=== PATIENT | male | born 1970 | race African-American/Black ===

== ENCOUNTER 2018-08-08 22:54 | Emergency (ER) | payer MEDICAID, OTHER ==
[~2018-08-08] VITALS: Ht 172.7 cm; Wt 68.0 kg
--- NOTE | 2018-08-08 23:00 | NUR ---
BIB RA TO BED 12 COMPLAINING OF CHEST PAIN X 2 WEEKS, NON RADIATING, DULL PAIN, 8/10 PAIN. AA/OX4. NO S/S OF SOB. SPEAKING FULL SENTENCES. SKIN PINK, WARM, DRY. NO N/V. AMBULATED TO BATHROOM WITH STABLE GAIT. NAD. VSS. STABLE CONDITION. WILL CONTINUE TO MONITOR.
[2018-08-08] MEDS ORDERED: ONDANSETRON HCL/PF 4 MG/2 ML VIAL ONE (23:16)
[2018-08-08] MEDS ORDERED: NITROGLYCERIN PACKET 1 GM PACKET ONE (23:17)
[2018-08-08] MEDS ORDERED: ASPIRIN EC 81 MG TABLET.DR PO ONE (23:17)
[2018-08-08] MEDS ORDERED: HYDROCODONE/APAP 5/325MG 1 EACH TABLET ONE (23:17)
[2018-08-08] MEDS: ONDANSETRON HCL/PF 4 MG/2 ML VIAL IVP ONE (23:23)
[2018-08-08] MEDS: HYDROCODONE/APAP 5/325MG 1 EACH TABLET PO ONE (23:24)
[2018-08-08] MEDS: ASPIRIN 81 MG TAB.CHEW PO ONE (23:24)
[2018-08-08] MEDS: NITROGLYCERIN PACKET 1 GM PACKET TD ONE (23:25)
[2018-08-08 23:40] LABS: CALCIUM, SERUM 8.6 mg/dL (8.5-10.1); CARBON DIOXIDE 28 mmol/L (21-32); CHLORIDE 105 mmol/L (98-107); CREATININE 0.9 mg/dL (0.6-1.3); GLUCOSE 93 mg/dL (74-106); POTASSIUM 4.1 mmol/L (3.5-5.1); SODIUM SERUM 139 mmol/L (136-145); UREA NITROGEN, BLOOD 14 mg/dL (7-18)
[2018-08-08 23:46] LABS: HEMATOCRIT 46 % (39-51); HEMOGLOBIN 15.4 g/dL (13.5-17.5); MEAN CORPUSCULAR HEMOGLOBIN 32 PG (26.0-33.0); MEAN CORPUSCULAR HGB CONC 34 g/dl (31.0-36.0); MEAN CORPUSCULAR VOLUME 94 fL (80-96); RDW COEFFICIENT OF VARIATION 13.1 (11.5-15.0); RED BLOOD CELL COUNT(AUTO) 4.85 MIL/uL (4.5-6.0); TROPONIN I < 0.017 ng/mL (0.00-0.056); WHITE BLOOD COUNT (AUTO) 5.3 K/uL (4.3-11.0)
[2018-08-08 23:47] LABS: BASOPHILS % (AUTO) 0.6 % (0.0-2.0); EOSINOPHILS % (AUTO) 1.1 % (0.0-6.0); LYMPHOCYTES % (AUTO) 40.8 % (20.0-44.0); MONOCYTES % (AUTO) 13.5 % (2.0-12.0); NEUTROPHILS % (AUTO) 43.7 % (43.0-81.0); PLATELET COUNT (AUTO) 181 /CMM (150-450)
[2018-08-08 23:52] LABS: ALANINE AMINOTRANSFERASE 55 U/L (12-78); ALBUMIN 3.3 g/dL (3.4-5.0); ALKALINE PHOSPHATASE 43 U/L (46-116); ASPARTATE AMINOTRANSFERASE 33 U/L (15-37); B-TYPE NATRIURETIC PEPTIDE 542 PG/ML (0-125); BILIRUBIN,DIRECT 0.1 mg/dL (0.0-0.2); BILIRUBIN,TOTAL 0.2 mg/dL (0.2-1.0)
[2018-08-09] MEDS ORDERED: LEVOFLOXACIN 750 MG /D5W 150ML 150 ML IV ONE (00:27)
[2018-08-09] MEDS: LEVOFLOXACIN 750 MG /D5W 150ML 150 ML IV ONE (00:30)
--- NOTE | 2018-08-09 01:49 | NUR ---
AMBULATED TO BATHROOM WITH STEADY GAIT. NAD.VSS. WILL CONTINUE TO MONITOR.
--- NOTE | 2018-08-09 03:27 | NUR ---
PT SITTING UP EATING FOOD STABLE CONDITION. NAD. VSS.
[2018-08-09 04:30] VITALS: BP 127/82
== END 2018-08-09 04:31 | disposition home or self-care (01) ==
LOC: ER 22:56
DX: R07.89 Other chest pain (principal); R05 Cough; F31.9 Bipolar disorder, unspecified; F43.10 Post-traumatic stress disorder, unspecified; R94.31 Abnormal electrocardiogram [ECG] [EKG]; Z72.0 Tobacco use; Z88.8 Allergy status to other drugs, medicaments and biological substances; Z71.6 Tobacco abuse counseling; Z86.59 Personal history of other mental and behavioral disorders
CPT/HCPCS: 36415; 71045-TC; 80048-TC; 80076-TC; 83880; 84484-TC; 85025-TC; A4606; J1956; J2405; Z7610

== ENCOUNTER 2021-11-17 00:09 | Emergency (ER) | payer OTHER ==
[~2021-11-17] VITALS: Ht 172.7 cm; Wt 83.9 kg
--- NOTE | 2021-11-17 04:20 | NUR ---
PRESENTED TO THE ER FOR C/O SI. REPORTED RECENT LOOS OF HIS DAD. PT IS REQUESTING VOLUNTARY PSYCH ADMISSION. AMBULATORY TO THE BATHROOM. URINE SAMPLE OBTAINED. WAS PLACED IN BED 12, ON SI PRECAUTION. WITH SITTER OBSERVATION. VSS. WILL CONT TO MONITOR ,
[2021-11-17 05:14] LABS: BASOPHILS % (AUTO) 0.6 % (0.0-2.0); HEMATOCRIT 36 % (39-51); LYMPHOCYTES # (AUTO) 2.6 K/uL (0.8-4.8); LYMPHOCYTES % (AUTO) 41.5 % (20.0-44.0); MEAN CORPUSCULAR HGB CONC 34 g/dl (31.0-36.0); MEAN CORPUSCULAR VOLUME 94 fL (80-96); MONOCYTES # (AUTO) 0.7 K/uL (0.1-1.30); MONOCYTES % (AUTO) 11.2 % (2.0-12.0); NEUTROPHILS # (AUTO) 2.8 K/uL (1.8-8.9); NEUTROPHILS % (AUTO) 44.7 % (43.0-81.0); PLATELET COUNT (AUTO) 195 K/uL (150-450); WHITE BLOOD COUNT (AUTO) 6.2 K/uL (4.3-11.0)
[2021-11-17 05:26] LABS: BILIRUBIN,URINE NEGATIVE (NEGATIVE); COLOR,URINE YELLOW (YELLOW); LEUKOCYTE ESTERASE ,URINE NEGATIVE (NEGATIVE); NITRITE, URINE NEGATIVE (NEGATIVE); PROTEIN,URINE NEGATIVE (NEGATIVE); UGLUCOSE NEGATIVE (NEGATIVE); UROBILINOGEN,URINE 0.2 EU/dL (0.2)
[2021-11-17 05:26] LABS: CALCIUM, SERUM 7.9 mg/dL (8.5-10.1); CARBON DIOXIDE 28 mmol/L (21-32); CHLORIDE 105 mmol/L (98-107); CREATININE 1.1 mg/dL (0.6-1.3); GLUCOSE 126 mg/dL (74-106); POTASSIUM 3.9 mmol/L (3.5-5.1); SODIUM SERUM 140 mmol/L (136-145); UREA NITROGEN, BLOOD 15 mg/dL (7-18)
[2021-11-17 05:33] LABS: ACETAMINOPHEN 0 ug/ml (10-30); ALANINE AMINOTRANSFERASE 53 U/L (12-78); ALBUMIN 3.1 g/dL (3.4-5.0); ALCOHOL, BLOOD < 3 mg/dL (0-0); ALKALINE PHOSPHATASE 48 U/L (46-116); ASPARTATE AMINOTRANSFERASE 30 U/L (15-37); BILIRUBIN,DIRECT 0.1 mg/dL (0.0-0.2); BILIRUBIN,TOTAL 0.2 mg/dL (0.2-1.0); TOTAL PROTEIN, SERUM 6.9 g/dL (6.4-8.2)
--- NOTE | 2021-11-17 06:30 | NUR ---
CLINICALS AND FACE SHEET FAXED TO [facility]
--- NOTE | 2021-11-17 08:06 | NUR ---
PT ACCEPTED TO [facility] UNIT 2 UNDER [facility] BED AVAILABLE AFTER 6415
--- NOTE | 2021-11-17 08:12 | NUR ---
[facility] CALLED FOR TRANSPORT ASKED FOR ETA OF 1230 SPOKE WITH GLORIA.
--- NOTE | 2021-11-17 09:32 | NUR ---
REPORT GIVEN TO NURSE KATHARINE FROM [facility]
[2021-11-17 10:20] VITALS: BP 132/75
--- NOTE | 2021-11-17 12:42 | NUR ---
Patient discharged to [facility] in stable condition. Written and verbal after care instructions given. The patient verbalizes understanding of instruction.
== END 2021-11-17 12:44 ==
LOC: ER 00:11
DX: R45.851 Suicidal ideations (principal); F31.9 Bipolar disorder, unspecified; F41.9 Anxiety disorder, unspecified; Z20.822 Contact with and (suspected) exposure to COVID-19; F43.10 Post-traumatic stress disorder, unspecified; Z59.01 Sheltered homelessness; F17.200 Nicotine dependence, unspecified, uncomplicated; Z88.8 Allergy status to other drugs, medicaments and biological substances
CPT/HCPCS: 36415; 80048; 80076; 80143; 80307; 80320; 81003; 85025; 87426; 99285; C9803; G0480

== ENCOUNTER 2021-11-22 01:25 | Emergency (ER) | payer OTHER ==
[~2021-11-22] VITALS: Ht 172.7 cm; Wt 83.9 kg
[2021-11-22 04:30] VITALS: BP 147/89
[2021-11-22] MEDS ORDERED: IBUPROFEN 400 MG TABLET ONE (04:57)
[2021-11-22] MEDS ORDERED: IBUP-1957 PO (04:58)
[2021-11-22] MEDS ORDERED: IBUPROFEN 400 MG TABLET PO ONE (05:00)
== END 2021-11-22 05:21 | disposition home or self-care (01) ==
LOC: ER 01:25
DX: M21.611 Bunion of right foot (principal); F41.9 Anxiety disorder, unspecified; F32.9 Major depressive disorder, single episode, unspecified; Z88.8 Allergy status to other drugs, medicaments and biological substances; F17.200 Nicotine dependence, unspecified, uncomplicated; Z60.2 Problems related to living alone

== ENCOUNTER 2021-11-23 02:02 | Emergency (ER) | payer OTHER ==
[~2021-11-23] VITALS: Ht 172.7 cm; Wt 83.9 kg
[~2021-11-23 02:02] MED LIST: IBUP-1957 PO
[2021-11-23 02:48] VITALS: BP 124/78
--- NOTE | 2021-11-23 02:53 | NUR ---
BIBS. AAOX4. NOT IN RESP DISTRESS. AMBULATORY. CAME IN FOR SUICIDAL DEATION NO SPECIFIC PLAN. PT STATES THAT HE IS FEELING DEPRESSED BECAUSE HIS FATHER RECENTLY. PT DENIES HI. NO HALLUCINATIONS. MD WAS AT THE BEDSIDE FOR EVAL. ORDERS RECEIVED, NOTED AND CARRIED OUT. BLOOD DRAWN. STILL AWAITING FOR URINE SPECIMEN.
[2021-11-23 03:07] LABS: BASOPHILS % (AUTO) 0.4 % (0.0-2.0); EOSINOPHILS % (AUTO) 1.9 % (0.0-6.0); HEMATOCRIT 38 % (39-51); HEMOGLOBIN 12.9 g/dL (13.5-17.5); LYMPHOCYTES # (AUTO) 2.5 K/uL (0.8-4.8); LYMPHOCYTES % (AUTO) 40.4 % (20.0-44.0); MEAN CORPUSCULAR HGB CONC 34 g/dl (31.0-36.0); MEAN CORPUSCULAR VOLUME 94 fL (80-96); MONOCYTES # (AUTO) 0.8 K/uL (0.1-1.30); NEUTROPHILS # (AUTO) 2.8 K/uL (1.8-8.9); NEUTROPHILS % (AUTO) 44.3 % (43.0-81.0); PLATELET COUNT (AUTO) 206 K/uL (150-450); RED BLOOD CELL COUNT(AUTO) 4.08 MIL/uL (4.5-6.0); WHITE BLOOD COUNT (AUTO) 6.3 K/uL (4.3-11.0)
[2021-11-23 03:20] LABS: CALCIUM, SERUM 8.7 mg/dL (8.5-10.1); CARBON DIOXIDE 33 mmol/L (21-32); CHLORIDE 98 mmol/L (98-107); CREATININE 1.3 mg/dL (0.6-1.3); GLUCOSE 91 mg/dL (74-106); POTASSIUM 4.1 mmol/L (3.5-5.1); SODIUM SERUM 136 mmol/L (136-145); UREA NITROGEN, BLOOD 19 mg/dL (7-18)
[2021-11-23 03:38] LABS: ALANINE AMINOTRANSFERASE 66 U/L (12-78); ALBUMIN 3.9 g/dL (3.4-5.0); ALKALINE PHOSPHATASE 54 U/L (46-116); ASPARTATE AMINOTRANSFERASE 36 U/L (15-37); BILIRUBIN,DIRECT 0.1 mg/dL (0.0-0.2); BILIRUBIN,TOTAL 0.3 mg/dL (0.2-1.0); TOTAL PROTEIN, SERUM 8.6 g/dL (6.4-8.2)
[2021-11-23 03:39] LABS: ACETAMINOPHEN 0 ug/ml (10-30); ALCOHOL, BLOOD < 3 mg/dL (0-0)
--- NOTE | 2021-11-23 06:10 | NUR ---
URINE SAMPLE COLLECTED AND SENT TO LAB
[2021-11-23 07:30] LABS: BILIRUBIN,URINE NEGATIVE (NEGATIVE); COLOR,URINE YELLOW (YELLOW); LEUKOCYTE ESTERASE ,URINE NEGATIVE (NEGATIVE); NITRITE, URINE NEGATIVE (NEGATIVE); PROTEIN,URINE NEGATIVE (NEGATIVE); UGLUCOSE NEGATIVE (NEGATIVE)
[2021-11-23 09:05] LABS: BACTERIA,URINE None seen /HPF (None Seen); CALCIUM OXALATE CRYSTALS,UR Few /HPF (None Seen); SQUAMOUS EPITHELIAL CELL,UR Rare /HPF (None Seen); WBC,URINE 0-2 /HPF (0-3)
--- NOTE | 2021-11-23 09:35 | NUR ---
PT IS NOT IN HIS HOLDING ROOM. CORBY.
--- NOTE | 2021-11-24 13:30 | NUR ---
PATIENT MD CORBY AWARE
[2021-11-26] MEDS ORDERED: ACETAMINOPHEN 325 MG TABLET ONE (03:38)
== END 2021-11-24 17:00 | disposition left against medical advice (07) ==
LOC: ER 02:05
DX: R45.851 Suicidal ideations (principal); F31.9 Bipolar disorder, unspecified; Z59.02 Unsheltered homelessness; F17.210 Nicotine dependence, cigarettes, uncomplicated; Z20.822 Contact with and (suspected) exposure to COVID-19; Z53.29 Procedure and treatment not carried out because of patient's decision for other reasons
CPT/HCPCS: 36415; 80048; 80076; 80143; 80307; 80320; 81001; 85025; 87426; 99285; 99406; C9803; G0480

== ENCOUNTER 2021-11-25 21:25 | Emergency (ER) | payer OTHER ==
[~2021-11-25] VITALS: Ht 175.3 cm; Wt 81.6 kg
[2021-11-26 02:55] VITALS: BP 149/89
[2021-11-26 03:54] LABS: BASOPHILS % (AUTO) 0.7 % (0.0-2.0); EOSINOPHILS % (AUTO) 2.3 % (0.0-6.0); HEMATOCRIT 38 % (39-51); HEMOGLOBIN 12.7 g/dL (13.5-17.5); LYMPHOCYTES # (AUTO) 2.7 K/uL (0.8-4.8); LYMPHOCYTES % (AUTO) 43.9 % (20.0-44.0); MEAN CORPUSCULAR HGB CONC 33 g/dl (31.0-36.0); MEAN CORPUSCULAR VOLUME 93 fL (80-96); MONOCYTES # (AUTO) 0.8 K/uL (0.1-1.30); MONOCYTES % (AUTO) 13.2 % (2.0-12.0); NEUTROPHILS # (AUTO) 2.4 K/uL (1.8-8.9); NEUTROPHILS % (AUTO) 39.9 % (43.0-81.0); PLATELET COUNT (AUTO) 226 K/uL (150-450); RED BLOOD CELL COUNT(AUTO) 4.08 MIL/uL (4.5-6.0); WHITE BLOOD COUNT (AUTO) 6.1 K/uL (4.3-11.0)
[2021-11-26] MEDS ORDERED: ACETAMINOPHEN 325 MG TABLET PO ONE (04:00)
[2021-11-26 04:08] LABS: CALCIUM, SERUM 8.3 mg/dL (8.5-10.1)
[2021-11-26 04:18] LABS: ALBUMIN 3.4 g/dL (3.4-5.0); BILIRUBIN,DIRECT 0.1 mg/dL (0.0-0.2); BILIRUBIN,TOTAL 0.2 mg/dL (0.2-1.0); TOTAL PROTEIN, SERUM 7.7 g/dL (6.4-8.2)
[2021-11-26] MEDS ORDERED: POLY17PO4 PO (04:34)
[2021-11-26] MEDS ORDERED: DICY10CA37 PO (04:34)
--- NOTE | 2021-11-26 04:50 | NUR ---
Patient discharged to home in stable condition. Written and verbal after care instructions given. Patient verbalizes understanding of instruction.
== END 2021-11-26 05:26 | disposition home or self-care (01) ==
LOC: ER 21:56
DX: K59.00 Constipation, unspecified (principal); F17.210 Nicotine dependence, cigarettes, uncomplicated; Z59.00 Homelessness unspecified; Z79.2 Long term (current) use of antibiotics; Z79.1 Long term (current) use of non-steroidal anti-inflammatories (NSAID); Z79.899 Other long term (current) drug therapy; Z88.8 Allergy status to other drugs, medicaments and biological substances
CPT/HCPCS: 36415; 80048-TC; 80076-TC; 83690-TC; 85025-TC

== ENCOUNTER 2022-02-03 01:27 | Emergency (ER) | payer OTHER ==
[~2022-02-03] VITALS: Ht 162.6 cm; Wt 68.0 kg
[~2022-02-03 01:27] MED LIST changes: +DICY10CA37 PO; +POLY17PO4 PO
--- NOTE | 2022-02-03 03:00 | NUR ---
PT BIBSELF FOR C/O + SI REQUESTING VOL PSYCH ADMISSION AT [facility]. PT IS A/O, RR EVEN AND UNLABORED, NO SOB NOTED. VSS. PATIENT BELONGINGS PUT IN PT LOCKER. PT TAKEN TO ER BED 18. PATIENT NOTED WITH STEADY GAIT. WILL CONTINUE TO MONITOR.
[2022-02-03 03:20] LABS: BASOPHILS % (AUTO) 0.3 % (0.0-2.0); EOSINOPHILS % (AUTO) 2.4 % (0.0-6.0); HEMATOCRIT 37 % (39-51); HEMOGLOBIN 12.2 g/dL (13.5-17.5); LYMPHOCYTES # (AUTO) 2.3 K/uL (0.8-4.8); LYMPHOCYTES % (AUTO) 32.5 % (20.0-44.0); MEAN CORPUSCULAR HGB CONC 33 g/dl (31.0-36.0); MEAN CORPUSCULAR VOLUME 93 fL (80-96); MONOCYTES # (AUTO) 0.9 K/uL (0.1-1.30); MONOCYTES % (AUTO) 12.4 % (2.0-12.0); NEUTROPHILS # (AUTO) 3.7 K/uL (1.8-8.9); NEUTROPHILS % (AUTO) 52.4 % (43.0-81.0); PLATELET COUNT (AUTO) 235 K/uL (150-450); RED BLOOD CELL COUNT(AUTO) 3.91 MIL/uL (4.5-6.0); WHITE BLOOD COUNT (AUTO) 7.1 K/uL (4.3-11.0)
[2022-02-03 03:20] LABS: BILIRUBIN,URINE NEGATIVE (NEGATIVE); COLOR,URINE YELLOW (YELLOW); LEUKOCYTE ESTERASE ,URINE NEGATIVE (NEGATIVE); NITRITE, URINE NEGATIVE (NEGATIVE); PROTEIN,URINE NEGATIVE (NEGATIVE); UGLUCOSE NEGATIVE (NEGATIVE)
[2022-02-03 03:31] LABS: CALCIUM, SERUM 8.6 mg/dL (8.5-10.1); CARBON DIOXIDE 32 mmol/L (21-32); CHLORIDE 104 mmol/L (98-107); CREATININE 1.3 mg/dL (0.6-1.3); GLUCOSE 92 mg/dL (74-106); POTASSIUM 4.3 mmol/L (3.5-5.1); SODIUM SERUM 140 mmol/L (136-145); UREA NITROGEN, BLOOD 15 mg/dL (7-18)
[2022-02-03 03:37] LABS: ALANINE AMINOTRANSFERASE 105 U/L (12-78); ALBUMIN 3.6 g/dL (3.4-5.0); ALCOHOL, BLOOD < 3 mg/dL (0-0); ALKALINE PHOSPHATASE 46 U/L (46-116); ASPARTATE AMINOTRANSFERASE 46 U/L (15-37); BILIRUBIN,DIRECT 0.2 mg/dL (0.0-0.2); BILIRUBIN,TOTAL 0.4 mg/dL (0.2-1.0); TOTAL PROTEIN, SERUM 8.5 g/dL (6.4-8.2)
[2022-02-03 03:38] LABS: ACETAMINOPHEN 0 ug/ml (10-30)
--- NOTE | 2022-02-03 05:31 | NUR ---
FACESHEET AND CLINICALS FAXED TO [facility].
--- NOTE | 2022-02-03 10:38 | NUR ---
ACCEPTED TO [facility] UNDER [address] [facility] AFTER 1300 CALL [phone] FOR REPORT.
--- NOTE | 2022-02-03 10:41 | NUR ---
[facility] CALLED FOR TRANSPORT ASKED FOR ETA 1330.
[2022-02-03 11:00] VITALS: BP 125/74
--- NOTE | 2022-02-03 13:18 | NUR ---
THE PATIENT IS DISCHARGED TO [facility] IN STABLE CONDITION VIA ARRANGED TRANSPO.
== END 2022-02-03 13:19 ==
LOC: ER 01:28
DX: R45.851 Suicidal ideations (principal); F31.9 Bipolar disorder, unspecified; Z59.00 Homelessness unspecified; F17.200 Nicotine dependence, unspecified, uncomplicated
CPT/HCPCS: 36415; 80048; 80076; 80143; 80307; 80320; 81003; 85025; 87426; 99285; C9803; G0480

== ENCOUNTER 2022-02-28 17:56 | Emergency (ER) | payer OTHER ==
[~2022-02-28] VITALS: Ht 172.7 cm; Wt 79.8 kg
[2022-02-28 18:22] VITALS: BP 124/83
--- NOTE | 2022-02-28 18:47 | NUR ---
PATIENT NOT ABLE TO PROVIDE URINE SAMPLE
--- NOTE | 2022-02-28 18:48 | NUR ---
PATIENT ASKED TO BE PLACED IN A GOWN AND SURRENDER HIS BELONGINGS. PATIENT DENIED TO COMPLY AND DECIDED TO JUST GO.
--- NOTE | 2022-02-28 18:48 | NUR ---
PT DID NOT VERBALIZED ANY SUICIDAL IDAETION PT VERBALIZED THAT HEIS HERE FOR MED CLEARANCE
== END 2022-02-28 19:00 | disposition left against medical advice (07) ==
LOC: ER 18:03
DX: Z53.21 Procedure and treatment not carried out due to patient leaving prior to being seen by health care provider (principal)

== ENCOUNTER 2023-05-23 21:33 | Emergency (ER) | payer OTHER ==
[~2023-05-23] VITALS: Ht 172.7 cm; Wt 81.6 kg
[2023-05-24 00:37] VITALS: BP 134/87; TEMP 98.1
--- NOTE | 2023-05-24 00:40 | NUR ---
BRODEI FROM STREET C/O DEPRESSION & HI. VOLUNTARY PSYCH ADMIT. PT A/OX4. TOLERATING R/A WELL WITH NO RESP DISTRESS. AMB WITH STEADY GAIT. PT CHANGED IN GOWN. BELONGINGS COLLECTED. WANDED BY SECURITY. SAFETY MEASURES IN PLACE.
--- NOTE | 2023-05-24 00:41 | NUR ---
URINE CUP PROVIDED; AWAITING URINE SAMPLE.
--- NOTE | 2023-05-24 00:41 | NUR ---
COVID ANTIGEN SWAB COLLECTED AND SENT TO LAB
--- NOTE | 2023-05-24 01:01 | NUR ---
URINE COLLECTED AND SENT TO LAB
[2023-05-24 01:32] LABS: BILIRUBIN,URINE 2+ (NEGATIVE); COLOR,URINE DARK YELLOW (YELLOW); LEUKOCYTE ESTERASE ,URINE NEGATIVE (NEGATIVE); NITRITE, URINE NEGATIVE (NEGATIVE); PH,URINE 5.5 (5.0-8.0); PROTEIN,URINE 1+ mg/dl (NEGATIVE); UGLUCOSE NEGATIVE (NEGATIVE)
[2023-05-24 01:51] LABS: BASOPHILS % (AUTO) 0.5 % (0.0-2.0); EOSINOPHILS % (AUTO) 1.2 % (0.0-6.0); HEMATOCRIT 40 % (39-51); HEMOGLOBIN 13.2 g/dL (13.5-17.5); LYMPHOCYTES # (AUTO) 2.5 K/uL (0.8-4.8); LYMPHOCYTES % (AUTO) 41.5 % (20.0-44.0); MEAN CORPUSCULAR HGB CONC 33 g/dl (31.0-36.0); MEAN CORPUSCULAR VOLUME 94 fL (80-96); MONOCYTES # (AUTO) 0.7 K/uL (0.1-1.30); MONOCYTES % (AUTO) 11.9 % (2.0-12.0); NEUTROPHILS # (AUTO) 2.7 K/uL (1.8-8.9); NEUTROPHILS % (AUTO) 44.9 % (43.0-81.0); PLATELET COUNT (AUTO) 275 K/uL (150-450); RED BLOOD CELL COUNT(AUTO) 4.29 MIL/uL (4.5-6.0); WHITE BLOOD COUNT (AUTO) 6.1 K/uL (4.3-11.0)
[2023-05-24 02:01] LABS: CALCIUM, SERUM 9.3 mg/dL (8.5-10.1); CARBON DIOXIDE 30 mmol/L (21-32); CHLORIDE 102 mmol/L (98-107); CREATININE 1.1 mg/dL (0.6-1.3); GLUCOSE 68 mg/dL (74-106); POTASSIUM 3.3 mmol/L (3.5-5.1); SODIUM SERUM 139 mmol/L (136-145); UREA NITROGEN, BLOOD 13 mg/dL (7-18)
[2023-05-24 02:08] LABS: ALANINE AMINOTRANSFERASE 50 U/L (12-78); ALBUMIN 3.9 g/dL (3.4-5.0); ALCOHOL, BLOOD < 3 mg/dL (0-10); ALKALINE PHOSPHATASE 53 U/L (46-116); ASPARTATE AMINOTRANSFERASE 42 U/L (15-37); BILIRUBIN,DIRECT 0.2 mg/dL (0.0-0.2); BILIRUBIN,TOTAL 0.6 mg/dL (0.2-1.0); TOTAL PROTEIN, SERUM 8.7 g/dL (6.4-8.2)
[2023-05-24 02:48] LABS: BACTERIA,URINE Rare /HPF (None Seen); RBC,URINE 0-2 /HPF (0-2); SQUAMOUS EPITHELIAL CELL,UR Few /HPF (None Seen); WBC,URINE 0-2 /HPF (0-3)
[2023-05-24 02:49] LABS: CALCIUM OXALATE CRYSTALS,UR Many /HPF (None Seen); MUCUS,URINE Moderate /LPF (None Seen)
--- NOTE | 2023-05-24 04:30 | NUR ---
FACESHEET AND CLINICALS FAXED TO [facility].
--- NOTE | 2023-05-24 06:08 | NUR ---
PT ACCEPTED TO [facility] ROOM 107A PER [facility]EV[facility]. ETA FOR TRANSPORT 8:30AM
--- NOTE | 2023-05-24 06:22 | NUR ---
[facility] CALLED ETA 30-45 MINUTES
--- NOTE | 2023-05-24 07:10 | NUR ---
PT TRANSFERRING [place] [facility] [facility]. VSS. ALL BELONGINGS WITH PT. REPORT GIVEN TO [facility] EMT
== END 2023-05-24 07:22 ==
LOC: ER 21:38
DX: F32.A Depression, unspecified (principal); R45.4 Irritability and anger; F41.9 Anxiety disorder, unspecified; F17.200 Nicotine dependence, unspecified, uncomplicated; Z20.822 Contact with and (suspected) exposure to COVID-19; Z79.899 Other long term (current) drug therapy; Z59.00 Homelessness unspecified; Z88.1 Allergy status to other antibiotic agents
CPT/HCPCS: 99285; 85025; 80048; 80076; 81001; 36415; 87426; 80143; 80320; 80307; C9803; G0480